=== PATIENT | male | born 1955 | race American Indian/Alaskan Native ===

== ENCOUNTER 2017-05-11 04:56 | Emergency (ER) | payer MEDICARE ==
[2017-05-11 06:17] LABS: Hematocrit 37.7 % (35.5-45.6); Hemoglobin 12.9 gm/dl (11.8-15.2); Mean Corpuscular HGB Conc 34 % (32-34); Mean Corpuscular Hemoglobin 26 pg (28-32); Mean Corpuscular Volume 76 fl (84-94); Platelet Count 240 K/mm3 (140-440); Red Blood Count 4.95 M/mm3 (3.65-5.03); White Blood Count 15.4 K/mm3 (4.5-11.0)
[2017-05-11 06:18] LABS: Anion Gap 35 mmol/L; Blood Urea Nitrogen 12 mg/dL (9-20); Calcium 9.1 mg/dL (8.4-10.2); Carbon Dioxide 26 mmol/L (22-30); Chloride 92.9 mmol/L (98-107); Glucose 115 mg/dL (75-100); Potassium 4.6 mmol/L (3.6-5.0); Sodium 149 mmol/L (137-145)
[2017-05-11 06:22] LABS: Red Cell Distribution Width 22.1 % (13.2-15.2)
[2017-05-11 06:59] LABS: Bilirubin,Urine NEG (Negative); Blood,Urine NEG (Negative); Ketones,Urine NEG (Negative); Leukocyte Esterase,Urine NEG (Negative); Nitrite,Urine NEG (Negative); Protein,Urine <15 mg/dL mg/dL (Negative); Urobilinogen,Urine < 2.0 mg/dL (<2.0); WBC,Urine < 1.0 /HPF (0.0-6.0)
--- NOTE | 2017-05-11 07:12 | Emergency Department Report ---
ED Chest Pain HPI - General Chief Complaint: Chest Pain Stated Complaint: LT SHOULDER PAIN Time Seen by Provider: 05/11/17 07:11 Source: patient Mode of arrival: Ambulatory Limitations: No Limitations - History of Present Illness Initial Comments: Patient is a 61-year-old male past medical history of sickle cell anemia. Who presents with left shoulder pain. Patient's left shoulder started 12 hours ago. It is severe it is an achy type of pain that does not radiate nothing makes the pain better or worse. The pain is not associated with any symptoms. He states that this shoulder pain is typical for his sickle cell pain. Patient has no nausea no vomiting. Severity scale (0 -10): 6 - Related Data Allergies Allergy/AdvReac Type Severity Reaction Status Date / Time No Known Allergies Allergy Verified 05/11/17 05:28 Heart Score - HEART Score History: Slightly suspicious EKG: Normal Age: 45-65 Risk factors: 1-2 risk factors Troponin: < normal limit HEART Score: 2 ED Review of Systems ROS: Stated complaint: LT SHOULDER PAIN Other details as noted in HPI Constitutional: denies: chills, fever Eyes: denies: eye pain, eye discharge, vision change ENT: denies: ear pain, throat pain Respiratory: denies: cough, shortness of breath, wheezing Cardiovascular: denies: chest pain, palpitations Endocrine: no symptoms reported Gastrointestinal: denies: abdominal pain, nausea, diarrhea Genitourinary: denies: urgency, dysuria Musculoskeletal: as per HPI, arthralgia Skin: denies: rash, lesions Neurological: denies: headache, weakness, paresthesias Psychiatric: denies: anxiety, depression Hematological/Lymphatic: denies: easy bleeding, easy bruising ED Past Medical Hx - Past Medical History Previous Medical History?: No - Surgical History Past Surgical History?: No - Social History Smoking Status: Current Some Day Smoker Substance Use Type: Cocaine ED Physical Exam - General Limitations: No Limitations General appearance: alert, in no apparent distress - Head Head exam: Present: atraumatic, normocephalic - Eye Eye exam: Present: normal appearance - ENT ENT exam: Present: mucous membranes moist - Neck Neck exam: Present: normal inspection - Respiratory Respiratory exam: Present: normal lung sounds bilaterally. Absent: respiratory distress - Cardiovascular Cardiovascular Exam: Present: regular rate, normal rhythm. Absent: systolic murmur, diastolic murmur, rubs, gallop - GI/Abdominal GI/Abdominal exam: Present: soft, normal bowel sounds - Rectal Rectal exam: Present: deferred - Extremities Exam Extremities exam: Present: normal inspection - Back Exam Back exam: Present: normal inspection - Neurological Exam Neurological exam: Present: alert, oriented X3 - Psychiatric Psychiatric exam: Present: normal affect, normal mood - Skin Skin exam: Present: warm, dry, intact, normal color. Absent: rash ED Course Vital Signs 05/11/17 05/11/17 05/11/17 05:28 06:14 06:15 Temperature 97.6 F Pulse Rate 80 74 78 Respiratory 20 20 Rate Blood Pressure 106/80 Blood Pressure [Right] O2 Sat by Pulse 100 97 97 Oximetry 05/11/17 05/11/17 05/11/17 06:30 06:46 07:00 Temperature Pulse Rate 79 Respiratory 24 16 13 Rate Blood Pressure 101/65 101/65 108/64 Blood Pressure [Right] O2 Sat by Pulse 100 95 94 Oximetry 05/11/17 05/11/17 07:32 09:34 Temperature 98 F Pulse Rate 75 Respiratory 18 18 Rate Blood Pressure Blood Pressure 108/64 [Right] O2 Sat by Pulse 97 Oximetry - Reevaluation(s) Reevaluation #1: 05/11/17 08:57 Evaluated patient I will give patient IV hydration IV morphine and will evaluate chest x-ray to evaluate for acute chest syndrome. Reevaluation #2: 05/11/17 11:24 Patient is feeling better after IV analgesic medication I will send patient home patient. YOSELYN score - Yoselyn Score Age > 65: (0) No Aspirin use within the Past 7 Days: (0) No 3 or more CAD Risk Factors: (0) No 2 or more Angina events in past 24 hrs: (0) No Known CAD with more than 50% Stenosis: (0) No Elevated Cardiac Markers: (0) No ST Deviation Greater than 0.5mm: (0) No YOSELYN Score: 0 ED Medical Decision Making - Lab Data Result diagrams: 05/11/17 05:39 05/11/17 05:39 Lab Results 05/11/17 05/11/17 05/11/17 Range/Units 05:39 05:39 06:41 WBC 15.4 H (4.5-11.0) K/mm3 RBC 4.95 (3.65-5.03) M/mm3 Hgb 12.9 (11.8-15.2) gm/dl Hct 37.7 (35.5-45.6) % MCV 76 L (84-94) fl MCH 26 L (28-32) pg MCHC 34 (32-34) % RDW 22.1 H (13.2-15.2) % Plt Count 240 (140-440) K/mm3 Lymph # Lab Aid Add Manual Diff Complete Total Counted 100 Seg Neuts % (Manual) 59.0 (40.0-70.0) % Band Neutrophils % 12.0 % Lymphocytes % (Manual) 17.0 (13.4-35.0) % Reactive Lymphs % (Man) 0 % Monocytes % (Manual) 7.0 (0.0-7.3) % Eosinophils % (Manual) 4.0 (0.0-4.3) % Basophils % (Manual) 0 (0.0-1.8) % Metamyelocytes % 1.0 % Myelocytes % 0 % Promyelocytes % 0 % Blast Cells % 0 % Nucleated RBC % 6.0 H (0.0-0.9) % Seg Neutrophils # Man 9.1 H (1.8-7.7) K/mm3 Band Neutrophils # 1.8 K/mm3 Lymphocytes # (Manual) 2.6 (1.2-5.4) K/mm3 Abs React Lymphs (Man) 0.0 K/mm3 Monocytes # (Manual) 1.1 H (0.0-0.8) K/mm3 Eosinophils # (Manual) 0.6 H (0.0-0.4) K/mm3 Basophils # (Manual) 0.0 (0.0-0.1) K/mm3 Metamyelocytes # 0.2 K/mm3 Myelocytes # 0.0 K/mm3 Promyelocytes # 0.0 K/mm3 Blast Cells # 0.0 K/mm3 WBC Morphology Not Reportable Hypersegmented Neuts Not Reportable Hyposegmented Neuts Not Reportable Hypogranular Neuts Not Reportable Smudge Cells Few Toxic Granulation Not Reportable Toxic Vacuolation Not Reportable Dohle Bodies Not Reportable Pelger-Huet Anomaly Not Reportable [place] Rods Not Reportable Platelet Estimate Appears normal Clumped Platelets Not Reportable Plt Clumps, EDTA Not Reportable Large Platelets Not Reportable Giant Platelets Few Platelet Satelliting Not Reportable Plt Morphology Comment Not Reportable RBC Morphology Not Reportable Dimorphic RBCs Not Reportable Polychromasia Not Reportable Hypochromasia Not Reportable Poikilocytosis Not Reportable Anisocytosis 1+ Microcytosis Not Reportable Macrocytosis 1+ Spherocytes Not Reportable Pappenheimer Bodies Not Reportable Sickle Cells Not Reportable Target Cells Few Tear Drop Cells Not Reportable Ovalocytes Not Reportable Helmet Cells Not Reportable [place] Bodies Not Reportable [place] Rings Not Reportable Sieper Cells Not Reportable Bite Cells Not Reportable Crenated Cell Not Reportable Elliptocytes Not Reportable Acanthocytes (Spur) Not Reportable Rouleaux Not Reportable Hemoglobin C Crystals Not Reportable Schistocytes Not Reportable Malaria parasites Not Reportable Jered Bodies Not Reportable Hem Pathologist Commnt No Sodium 149 H (137-145) mmol/L Potassium 4.6 (3.6-5.0) mmol/L Chloride 92.9 L (98-107) mmol/L Carbon Dioxide 26 (22-30) mmol/L Anion Gap 35 mmol/L BUN 12 (9-20) mg/dL Creatinine 1.0 (0.8-1.5) mg/dL Estimated GFR > 60 ml/min BUN/Creatinine Ratio 12.00 % Glucose 115 H (75-100) mg/dL Calcium 9.1 (8.4-10.2) mg/dL Troponin T < 0.010 (0.00-0.029) ng/mL Urine Color Yellow (Yellow) Urine Turbidity Clear (Clear) Urine pH 5.0 (5.0-7.0) Ur Specific [place] 1.012 (1.003-1.030) Urine Protein <15 mg/dl (Negative) mg/dL Urine Glucose (UA) Neg (Negative) mg/dL Urine Ketones Neg (Negative) mg/dL Urine Blood Neg (Negative) Urine Nitrite Neg (Negative) Urine Bilirubin Neg (Negative) Urine Urobilinogen < 2.0 (<2.0) mg/dL Ur Leukocyte Esterase Neg (Negative) Urine WBC (Auto) < 1.0 (0.0-6.0) /HPF Urine RBC (Auto) 3.0 (0.0-6.0) /HPF - EKG Data -: EKG Interpreted by Wa - EKG Data 05/11/17 08:58 EKG shows normal sinus rhythm right bundle branch block no signs of ST segment elevation no previous EKG to compare with. - Radiology Data Radiology results: report reviewed, image reviewed Chest x-ray shows: No acute cardiopulmonary findings - Medical Decision Making Chief medical diagnosis: Sickle cell pain Differential medical diagnosis acute chest syndrome, pericarditis It CBC, CMP, EKG, cxr, troponin and IV pain analgesic medication. Critical care attestation.: If time is entered above; I have spent that time in minutes in the direct care of this critically ill patient, excluding procedure time. ED Disposition Clinical Impression: Sickle cell anemia with pain Left shoulder pain Qualifiers: Chronicity: acute Qualified Code(s): M25.512 - Pain in left shoulder Disposition: DC-01 TO HOME OR SELFCARE Is pt being admited?: No Does the pt Need Aspirin: No Condition: Stable Instructions: Sickle Cell Crisis (ED) Referrals: PRIMARY CARE, [Primary Care Provider] - 3-5 Days
[2017-05-11 07:36] LABS: Basophils % (Manual) 0 % (0.0-1.8); Blastocytes % (Manual) 0 %
[2017-05-11 07:37] LABS: Anisocytosis 1+; Giant Platelets Few; Macrocytosis 1+; Target Cells Few
[2017-05-11 07:38] LABS: Diff Status Complete; Smudge Cells Few
[2017-05-11] MEDS ORDERED: NACL 0.9% 1000 ML 1,000 ML IV ONE (07:56)
[2017-05-11] MEDS ORDERED: MORPHINE IV ONE ×2 (07:57→10:21)
--- NOTE | 2017-05-11 08:09 | XRay Report ---
Chest 2 views: History: Chest pain. Findings: Normal cardiomediastinal silhouette the trachea is midline. No definite consolidation, pneumothorax or pleural effusion. Impression: No definite acute cardiopulmonary findings.
[2017-05-11 13:02] VITALS: BP 107/64
== END 2017-05-11 13:06 | disposition home or self-care (01) ==
LOC: ED 04:56
DX: D57.1 Sickle-cell disease without crisis (principal); M25.512 Pain in left shoulder; F17.200 Nicotine dependence, unspecified, uncomplicated
CPT/HCPCS: 36415; 71020; 80048; 81001; 84484; 85007; 85025; 93005; 93010; 96361; 96374; 96376; 99285; J2270; J7030

== ENCOUNTER 2020-05-20 06:22 | Emergency (ER) | payer SELFPAY | END 2020-05-20 06:45 | disposition left against medical advice (07) | LOC: ED 06:22 | DX: D57.1 Sickle-cell disease without crisis (principal); Z53.21 Procedure and treatment not carried out due to patient leaving prior to being seen by health care provider ==

== ENCOUNTER 2020-05-26 00:31 | Emergency (ER) | payer MEDICARE ==
[2020-05-26 01:02] LABS: Hematocrit 39.3 % (35.5-45.6); Hemoglobin 13.7 gm/dl (11.8-15.2); Mean Corpuscular HGB Conc 35 % (32-34); Mean Corpuscular Volume 82 fl (84-94); Platelet Count 297 K/mm3 (140-440); Red Blood Count 4.82 M/mm3 (3.65-5.03); Red Cell Distribution Width 18.5 % (13.2-15.2)
[2020-05-26 01:26] LABS: Alanine Aminotransferase 11 units/L (7-56); BUN/Creatinine Ratio 14; Blood Urea Nitrogen 13 mg/dL (9-20); Calcium 8.9 mg/dL (8.4-10.2); Hemolysis Index 8
[2020-05-26] MEDS ORDERED: MORPHINE 2 MG/1 ML INJ IV ONE (01:31)
[2020-05-26] MEDS ORDERED: diphenhydrAMINE 50 MG/ML VIAL IV ONE (01:31)
[2020-05-26] MEDS ORDERED: ONDANSETRON 4 MG/2 ML INJ IV ONE (01:31)
[2020-05-26] MEDS ORDERED: D5W/0.2% NACL 1,000 ML IV SCH (02:00)
[2020-05-26 02:07] LABS: Total Cells Counted 100
[2020-05-26 02:08] LABS: Anisocytosis 1+; Giant Platelets Few; Macrocytosis 1+; Schistocytes Rare; Smudge Cells Few; Target Cells Few
--- NOTE | 2020-05-26 02:13 | Emergency Department Report ---
ED Extremity Problem HPI - General Chief complaint: Sickle Cell Crisis Stated complaint: RT SHOULDER/HEAD PAIN Time Seen by Provider: 05/26/20 01:24 Source: patient Mode of arrival: Ambulatory Limitations: No Limitations - History of Present Illness Initial comments: 64-year-old male with a past medical history of sickle cell SC presents to the hospital complaining of right shoulder pain for the last 3 days secondary to sickle cell crisis. Pain is moderate to severe in intensity, constant, not alleviated with [id number] ibuprofen and Tylenol. Patient denies trauma, fever, or infectious symptoms. 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 Severity scale (0 -10): 10 - Related Data Previous Rx's Medication Instructions Recorded Last Taken Type Azithromycin [Zithromax Z-ABHISHEK] 250 mg PO QDAY #6 tablet 12/19/18 Unknown Rx Ibuprofen [Motrin 600 MG tab] 600 mg PO Q8H PRN #30 tablet 12/19/18 Unknown Rx Oseltamivir Phosphate [Tamiflu] 75 mg PO BID #10 capsule 12/19/18 Unknown Rx oxyCODONE /ACETAMINOPHEN [Percocet 1 tab PO Q6HR PRN #20 tablet 05/26/20 Unknown Rx 5/325] Allergies Allergy/AdvReac Type Severity Reaction Status Date / Time No Known Allergies Allergy Verified 05/11/17 05:28 ED Review of Systems ROS: Stated complaint: RT SHOULDER/HEAD PAIN Other details as noted in HPI Comment: All other systems reviewed and negative ED Past Medical Hx - Past Medical History Hx Sickle Cell Disease: Yes Additional medical history: Left retinal detachment - Surgical History Hx Appendectomy: No - Social History Smoking Status: Current Every Day Smoker Substance Use Type: None - Medications Home Medications: Home Medications Medication Instructions Recorded Confirmed Last Taken Type Azithromycin [Zithromax Z-ABHISHEK] 250 mg PO QDAY #6 tablet 12/19/18 Unknown Rx Ibuprofen [Motrin 600 MG tab] 600 mg PO Q8H PRN #30 tablet 12/19/18 Unknown Rx Oseltamivir Phosphate [Tamiflu] 75 mg PO BID #10 capsule 12/19/18 Unknown Rx oxyCODONE /ACETAMINOPHEN [Percocet 1 tab PO Q6HR PRN #20 tablet 05/26/20 Unknow n Rx 5/325] ED Physical Exam - General Limitations: No Limitations - Other Other exam information: General: No acute distress Head: Atraumatic Eyes: Left eye with conjunctival injection ENT: Moist mucous membranes Neck: Normal appearance, no midline tenderness Chest: Clear to auscultation bilaterally CV: Regular rate and rhythm Abdomen: Soft, normal bowel sounds, nontender, nondistended, no rebound or guarding Back: Normal inspection Extremity: Normal inspection, full range of motion. No tenderness to palpation the right shoulder, no pain with movement, no warmth, no erythema Neuro: Alert O x 3, no facial asymmetry, speech clear, no gross motor sensory deficit Psych: Appropriate behavior Skin: No rash ED Course Vital Signs 05/26/20 05/26/20 05/26/20 00:38 00:52 01:25 Temperature 97.9 F 98.5 F 97.6 F Pulse Rate 85 76 74 Respiratory 18 18 16 Rate Blood Pressure 130/62 170/96 Blood Pressure 101/54 [Left] O2 Sat by Pulse 94 99 94 Oximetry 05/26/20 05/26/20 05/26/20 01:45 01:49 02:15 Temperature Pulse Rate 75 69 Respiratory 14 18 15 Rate Blood Pressure 110/64 118/63 Blood Pressure [Left] O2 Sat by Pulse 93 95 Oximetry 05/26/20 05/26/20 05/26/20 02:19 02:30 02:45 Temperature Pulse Rate 59 L 60 Respiratory 16 12 13 Rate Blood Pressure 110/65 111/66 Blood Pressure [Left] O2 Sat by Pulse 96 97 Oximetry 05/26/20 05/26/20 05/26/20 02:58 03:28 03:30 Temperature Pulse Rate 61 Respiratory 14 16 12 Rate Blood Pressure 103/55 Blood Pressure [Left] O2 Sat by Pulse 93 Oximetry 05/26/20 05/26/20 05/26/20 04:15 04:30 04:45 Temperature Pulse Rate 58 L 66 59 L Respiratory 10 L 10 L 10 L Rate Blood Pressure 107/58 104/62 110/56 Blood Pressure [Left] O2 Sat by Pulse 95 95 96 Oximetry ED Medical Decision Making - Lab Data Result diagrams: 05/26/20 00:40 05/26/20 00:40 Lab Results 05/26/20 05/26/20 Range/Units 00:40 00:40 WBC 13.5 H (4.5-11.0) K/mm3 RBC 4.82 (3.65-5.03) M/mm3 Hgb 13.7 (11.8-15.2) gm/dl Hct 39.3 (35.5-45.6) % MCV 82 L (84-94) fl MCH 29 (28-32) pg MCHC 35 H (32-34) % RDW 18.5 H (13.2-15.2) % Plt Count 297 (140-440) K/mm3 Add Manual Diff Complete Total Counted 100 Seg Neuts % (Manual) 57.0 (40.0-70.0) % Band Neutrophils % 0 % Lymphocytes % (Manual) 32.0 (13.4-35.0) % Reactive Lymphs % (Man) 0 % Monocytes % (Manual) 7.0 (0.0-7.3) % Eosinophils % (Manual) 3.0 (0.0-4.3) % Basophils % (Manual) 1.0 (0.0-1.8) % Metamyelocytes % 0 % Myelocytes % 0 % Promyelocytes % 0 % Blast Cells % 0 % Nucleated RBC % Not Reportable Seg Neutrophils # Man 7.7 (1.8-7.7) K/mm3 Band Neutrophils # 0.0 K/mm3 Lymphocytes # (Manual) 4.3 (1.2-5.4) K/mm3 Abs React Lymphs (Man) 0.0 K/mm3 Monocytes # (Manual) 0.9 H (0.0-0.8) K/mm3 Eosinophils # (Manual) 0.4 (0.0-0.4) K/mm3 Basophils # (Manual) 0.1 (0.0-0.1) K/mm3 Metamyelocytes # 0.0 K/mm3 Myelocytes # 0.0 K/mm3 Promyelocytes # 0.0 K/mm3 Blast Cells # 0.0 K/mm3 WBC Morphology Not Reportable Hypersegmented Neuts Not Reportable Hyposegmented Neuts Not Reportable Hypogranular Neuts Not Reportable Smudge Cells Few Toxic Granulation Not Reportable Toxic Vacuolation Not Reportable Dohle Bodies Not Reportable Pelger-Huet Anomaly Not Reportable [place] Rods Not Reportable Platelet Estimate Not Reportable Clumped Platelets Not Reportable Plt Clumps, EDTA Not Reportable Large Platelets Not Reportable Giant Platelets Few Platelet Satelliting Not Reportable Plt Morphology Comment Not Reportable RBC Morphology Not Reportable Dimorphic RBCs Not Reportable Polychromasia Not Reportable Hypochromasia Not Reportable Poikilocytosis Not Reportable Anisocytosis 1+ Microcytosis Rare Macrocytosis 1+ Spherocytes Not Reportable Pappenheimer Bodies Not Reportable Sickle Cells Not Reportable Target Cells Few Tear Drop Cells Not Reportable Ovalocytes Not Reportable Helmet Cells Not Reportable [place]qu[place] Bodies Not Reportable [place] Rings Not Reportable Memo Cells Not Reportable Bite Cells Not Reportable Crenated Cell Not Reportable Elliptocytes Not Reportable Acanthocytes (Spur) Not Reportable Rouleaux Not Reportable Hemoglobin C Crystals Not Reportable Schistocytes Rare Malaria parasites Not Reportable Percent Retic 3.18 H (0.78-2.58) % Jered Bodies Not Reportable Hem Pathologist Commnt No Sodium 144 (137-145) mmol/L Potassium 4.0 (3.6-5.0) mmol/L Chloride 104.9 (98-107) mmol/L Carbon Dioxide 24 (22-30) mmol/L Anion Gap 19 mmol/L BUN 13 (9-20) mg/dL Creatinine 0.9 (0.8-1.3) mg/dL Estimated GFR > 60 ml/min BUN/Creatinine Ratio 14 % Glucose 167 H (75-100) mg/dL Calcium 8.9 (8.4-10.2) mg/dL Total Bilirubin 0.70 (0.1-1.2) mg/dL AST 18 (5-40) units/L ALT 11 (7-56) units/L Alkaline Phosphatase 70 (35-129) units/L Total Protein 7.4 (6.3-8.2) g/dL Albumin 4.0 (3.9-5) g/dL Albumin/Globulin Ratio 1.2 % - Medical Decision Making Pain improved with ED treatment. Patient has pain secondary to sickle cell crisis with pain to his right shoulder. Patient states he is unable to take NSAIDs on a regular basis or on high doses because of his retinal detachment. Patient does not have anemia. Reticulocyte count mildly elevated. Right shoulder pain is not reproducible and no clinical signs of infection. he will be discharged on medications for pain Critical Care Time: No Critical care attestation.: If time is entered above; I have spent that time in minutes in the direct care of this critically ill patient, excluding procedure time. ED Disposition Clinical Impression: Right shoulder pain, Sickle cell pain crisis Disposition: DC- TO HOME OR SELFCARE Is pt being admited?: No Does the pt Need Aspirin: No Condition: Stable Instructions: Sickle Cell Crisis (ED) Additional Instructions: Take the medication as prescribed. Follow-up with your doctor or doctor/clinic provided. Return if symptoms worsen as indicated by your discharge instructions. Prescriptions: oxyCODONE /ACETAMINOPHEN [Percocet 5/325] 1 tab PO Q6HR PRN #20 tablet PRN Reason: Pain Referrals: JUSTYNA HOFFMANN MD [Staff Physician] - 3-5 Days (group insurance special agent) ROMA GALVEZ DO [Staff Physician] - 3-5 Days (Transcribing Machine Mechanic) VINH SHAH MD [Staff Physician] - 3-5 Days (Primary care doctor) Time of Disposition: 05:16
[2020-05-26] MEDS ORDERED: HYDROmorphone 1 MG/1 ML INJ IV ONE (02:52)
[2020-05-26 06:13] VITALS: BP 102/69
== END 2020-05-26 05:50 | disposition home or self-care (01) ==
LOC: ED 00:31
DX: D57.00 Hb-SS disease with crisis, unspecified (principal); M25.511 Pain in right shoulder; F17.200 Nicotine dependence, unspecified, uncomplicated; Z79.899 Other long term (current) drug therapy
CPT/HCPCS: 36415; 80053; 85007; 85025; 85045; 96361; 96374; 96375; 99283; J1170; J1200; J2270; J2405

== ENCOUNTER 2020-06-01 10:20 | Emergency (ER) | payer MEDICARE ==
[2020-06-01] MEDS ORDERED: METOCLOPRAMIDE 10 MG/2 ML INJ IV ONE (10:33)
[2020-06-01] MEDS ORDERED: methylPREDNISolone Sod Succinate 125 MG/2 ML INJ IV ONE (10:33)
[2020-06-01] MEDS ORDERED: SODIUM CHLORIDE 0.9% 500 ML 500 ML IV ONE (10:34)
--- NOTE | 2020-06-01 10:37 | Emergency Department Report ---
HPI - General Chief Complaint: Headache Time Seen by Provider: 06/01/20 10:32 - HPI HPI: This is a 64-year-old -Irish male presents to the emergency department with a complaint of a right-sided headache, some dizziness and some blurry vision. He denies any weakness, numbness or paresthesias, slurred speech, or any other neurological deficits. Overall the headache has been going on intermittently over the past 2 weeks. It worsened this morning so he came in to be seen. Currently the patient is at [facility] as a voluntary admission for some depression and "detox" from some opiates. He has a history of sickle cell anemia. 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 Patient has been taking some Tylenol and/or ibuprofen when the headaches occur with some transient relief, and he received 800 mg of ibuprofen at 9:45 AM this morning. ED Past Medical Hx - Past Medical History Hx Sickle Cell Disease: Yes Additional medical history: Left retinal detachment - Surgical History Hx Appendectomy: No - Social History Smoking Status: Current Every Day Smoker Substance Use Type: None - Medications Home Medications: Home Medications Medication Instructions Recorded Confirmed Last Taken Type Azithromycin [Zithromax Z-ABHISHEK] 250 mg PO QDAY #6 tablet 12/19/18 Unknown Rx Ibuprofen [Motrin 600 MG tab] 600 mg PO Q8H PRN #30 tablet 12/19/18 Unknown Rx Oseltamivir Phosphate [Tamiflu] 75 mg PO BID #10 capsule 12/19/18 Unknown Rx oxyCODONE /ACETAMINOPHEN [Percocet 1 tab PO Q6HR PRN #20 tablet 05/26/20 Unknown Rx 5/325] ED Review of Systems ROS: Stated complaint: GAINES/DIZZINESS Other details as noted in HPI Comment: All other systems reviewed and negative Constitutional: denies: chills, fever Eyes: vision change. denies: eye pain ENT: denies: ear pain, throat pain Respiratory: denies: cough, shortness of breath Cardiovascular: denies: chest pain, palpitations Gastrointestinal: denies: abdominal pain, vomiting Genitourinary: denies: dysuria, discharge Musculoskeletal: denies: back pain, arthralgia Skin: denies: rash, lesions Neurological: headache. denies: weakness Physical Exam - Physical Exam Physical Exam: GENERAL: The patient is well-developed well-nourished. HENT: Normocephalic. Atraumatic. Patient has moist mucous membranes. EYES: Extraocular motions are intact. No nystagmus. NECK: Supple. Trachea is midline. CHEST/LUNGS: Clear to auscultation. There is no respiratory distress noted. HEART/CARDIOVASCULAR: Regular. There is no tachycardia. There is no murmur. ABDOMEN: Abdomen is soft, nontender. Patient has normal bowel sounds. SKIN: Skin is warm and dry. NEURO: The patient is awake, alert, and oriented. The patient is cooperative. The patient has no focal neurologic deficits. Normal speech. No facial asymmetry. No pronator drift. MUSCULOSKELETAL: There is no tenderness or deformity. There is no limitation range of motion. ED Medical Decision Making - Lab Data Result diagrams: 06/01/20 10:51 06/01/20 10:51 - Radiology Data Radiology results: report reviewed NONENHANCED CT SCAN OF THE HEAD: INDICATION / CLINICAL INFORMATION: 64 years Male; headache. TECHNIQUE: Routine CT head without contrast. All CT scans at this location are performed using CT dose reduction for ALARA by means of automated exposure control. COMPARISON: None. FINDINGS: BRAIN / INTRACRANIAL CONTENTS: No acute hemorrhage, mass effect, midline shift, hydrocephalus, or acute, large territorial infarct. No chronic infarct or focal atrophy. Normal brain volume and ventricular/sulcal size for age. No significant white matter abnormality. CRANIOCERVICAL JUNCTION: No significant abnormality. ORBITS: No significant abnormality of visualized orbits. SINUSES / MASTOIDS: No significant abnormality of the visualized paranasal sinuses or mastoid air cells. ADDITIONAL FINDINGS: Lower CT attenuation is seen in the clivus. This appears to be an incidental lipoma. IMPRESSION: No acute focal parenchymal lesion in the brain - Medical Decision Making This patient presents to the emergency department with complaint of an acute on chronic headache. The patient has been getting headaches over the past few weeks but worsened this morning. Patient had complained of some blurry vision. However he later admits that he has almost no vision in his left eye chronically secondary to previous retinal detachment from his sickle cell anemia. He also has some decreased right eye vision that has also been going on for the past few weeks. CT scan of the head without contrast does not show any bleed, shift, mass, ischemia, or any other acute process. Patient's labs are mostly unremarkable except for a very mild leukocytosis and a reticulocyte count of 2.5. An IV was placed and the patient was given a dose of Solu-Medrol, Reglan, and some IV fluid resuscitation. Upon reevaluation the patient says that his headache is completely resolved, 0 out of 10. The patient also says that his blurry vision has decreased and he is back at what is apparently his baseline visual acuity. The patient says that he follows up with [place] for both the sickle cell clinic and for ophthalmology. I have given him an outpatient referral for Dr. Agrawal, neurology, to follow-up regarding his recurrent headaches. His vital signs been reassuring throughout his ED course including being afebrile. He will return to the ER with any worsening of his symptoms or with any acute distress. Critical Care Time: No Critical care attestation.: If time is entered above; I have spent that time in minutes in the direct care of this critically ill patient, excluding procedure time. 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 It is also recommended that you establish care with a primary care provider and I will give you some referrals for a local provider and a local clinic. I am also giving you a referral for a local neurologist, Dr. Agrawal, to follow-up regarding your headaches. Return to the emergency department with any worsening of your symptoms or with any acute distress. Referrals: [facility] [Other] - 3-5 Days VINH SHAH MD [Staff Physician] - 3-5 Days DANY AGRAWAL MD [Referring] - 3-5 Days [facility] [Provider Group] - 3-5 Days Time of Disposition: 13:39
[2020-06-01 11:10] LABS: Basophils # (Auto) 0.2 K/mm3 (0.0-0.1); Basophils % (Auto) 1.5 % (0.0-1.8); Eosinophils # (Auto) 0.4 K/mm3 (0.0-0.4); Eosinophils % (Auto) 2.6 % (0.0-4.3); Hematocrit 35.6 % (35.5-45.6); Hemoglobin 12.2 gm/dl (11.8-15.2); Lymphocytes % (Auto) 21.6 % (13.4-35.0); Mean Corpuscular HGB Conc 34 % (32-34); Mean Corpuscular Volume 82 fl (84-94); Monocytes # (Auto) 0.7 K/mm3 (0.0-0.8); Monocytes % (Auto) 5.3 % (0.0-7.3); Platelet Count 263 K/mm3 (140-440); Red Blood Count 4.36 M/mm3 (3.65-5.03); Red Cell Distribution Width 18.7 % (13.2-15.2)
[2020-06-01 11:23] LABS: BUN/Creatinine Ratio 19; Blood Urea Nitrogen 19 mg/dL (9-20); Calcium 8.9 mg/dL (8.4-10.2); Hemolysis Index 11
[2020-06-01 11:45] LABS: Erythrocyte Sedimentation Rate 9 mm/Hr (0-20)
--- NOTE | 2020-06-01 11:58 | Cat Scan Report ---
NONENHANCED CT SCAN OF THE HEAD: INDICATION / CLINICAL INFORMATION: 64 years Male; headache. TECHNIQUE: Routine CT head without contrast. All CT scans at this location are performed using CT dos e reduction for ALARA by means of automated exposure control. COMPARISON: None. FINDINGS: BRAIN / INTRACRANIAL CONTENTS: No acute hemorrhage, mass effect, midline shift, hydrocephalus, or ac havasupai, large territorial infarct. No chronic infarct or focal atrophy. Normal brain volume and ventricu lar/sulcal size for age. No significant white matter abnormality. CRANIOCERVICAL JUNCTION: No significant abnormality. ORBITS: No significant abnormality of visualized orbits. SINUSES / MASTOIDS: No significant abnormality of the visualized paranasal sinuses or mastoid air annie ls. ADDITIONAL FINDINGS: Lower CT attenuation is seen in the clivus. This appears to be an incidental lip boaz. IMPRESSION: No acute focal parenchymal lesion in the brain Signer Name: Hugo Aaron MD Signed: 06/01/2020 11:53 AM Workstation Name: [id number]
[2020-06-01 14:11] VITALS: BP 110/52
== END 2020-06-01 14:32 | disposition home or self-care (01) ==
LOC: ED 10:20
DX: R51 Headache (principal); D57.1 Sickle-cell disease without crisis; F17.200 Nicotine dependence, unspecified, uncomplicated; Z79.899 Other long term (current) drug therapy
CPT/HCPCS: 36415; 70450; 80048; 84443; 85025; 85045; 85652; 96374; 96375; 99285; J2765; J2930; J7040

== ENCOUNTER 2021-03-16 17:28 | Emergency (ER) | payer MEDICARE ==
[2021-03-16 18:42] VITALS: BP 161/79
[2021-03-16 19:32] LABS: Alanine Aminotransferase 13 units/L (7-56); Albumin 4.4 g/dL (3.9-5); BUN/Creatinine Ratio 11; Blood Urea Nitrogen 10 mg/dL (9-20); Calcium 9.2 mg/dL (8.4-10.2); Hemolysis Index 20
[2021-03-16 19:33] LABS: Hemoglobin 13.5 gm/dl (11.8-15.2); Mean Corpuscular HGB Conc 35 % (32-34); Mean Corpuscular Volume 81 fl (84-94); Platelet Count 397 K/mm3 (140-440); Red Blood Count 4.81 M/mm3 (3.65-5.03)
--- NOTE | 2021-03-16 19:33 | XRay Report ---
CHEST 2 VIEWS INDICATION / CLINICAL INFORMATION: chest pain. COMPARISON: 12/19/2018 FINDINGS: SUPPORT DEVICES: None. HEART / MEDIASTINUM: No significant abnormality. LUNGS / PLEURA: No significant pulmonary or pleural abnormality. No pneumothorax. ADDITIONAL FINDINGS: No significant additional findings. IMPRESSION: No significant abnormality or interval change from 12/19/2018 Signer Name: Skinny Wan MD FACR Signed: 03/16/2021 7:29 PM Workstation Name: [id number]
[2021-03-16 19:36] LABS: Red Cell Distribution Width 20.2 % (13.2-15.2)
[2021-03-16 20:56] LABS: Anisocytosis RARE; Platelet Clumps Rare; Total Cells Counted 100
--- NOTE | 2021-03-18 19:29 | Electrocardiograph Report ---
[facility] Test Date: 2021-03-16 Test Time: 18:31:08 Pat Name: CINTIA ALEX Department: Room: Gender: M Hospitality Ambassador: GKING3 : 1955 Requested By: HUGO BOND Order Number: [id number] Reading MD: Brent Miranda Measurements Intervals [place] Rate: 73 P: 76 FL: 162 QRS: 89 QRSD: 141 T: 44 QT: 407 QTc: 451 Interpretive Statements Sinus rhythm Right atrial enlargement Right bundle branch block No previous ECG available for comparison Electronically Signed On 03-18-2021 19:28:55 EDT by Brnet Miranda
== END 2021-03-16 19:52 | disposition left against medical advice (07) ==
LOC: ED 17:28
DX: R07.9 Chest pain, unspecified (principal); Z53.21 Procedure and treatment not carried out due to patient leaving prior to being seen by health care provider
CPT/HCPCS: 36415; 71046; 80053; 80320; 84484; 85007; 85025; 85045; 93005; G0480

== ENCOUNTER 2021-10-07 21:38 | Emergency (ER) | payer MEDICARE ==
[2021-10-07 22:18] LABS: Hematocrit 34.4 % (35.5-45.6); Hemoglobin 11.6 gm/dl (11.8-15.2); Mean Corpuscular HGB Conc 34 % (32-34); Mean Corpuscular Volume 81 fl (84-94); Platelet Count 329 K/mm3 (140-440); Red Blood Count 4.26 M/mm3 (3.65-5.03); Red Cell Distribution Width 19.7 % (13.2-15.2)
--- NOTE | 2021-10-07 22:29 | Emergency Department Report ---
HPI - General Chief Complaint: Psych Time Seen by Provider: 10/07/21 21:53 - HPI HPI: Room 12 The patient is a 66-year-old male presenting with a chief complaint of opiate abuse. Patient states he has a history of abusing heroin and cocaine nasally (denies IVDA). Patient states he came to [facility] so that he could detox from the above substances. The patient states he overdosed on heroin yesterday and was taken to the hospital but states he did not go to a detox facility afterwards. Patient denies suicidal homicidal ideation. Patient denies visual hallucinations but he states over the past 3 to 4 days he has occasionally had auditory hallucinations hearing someone calling his name. The patient states he did not recognize the voice. ED Past Medical Hx - Past Medical History Previous Medical History?: Yes Hx Sickle Cell Disease: Yes Additional medical history: Left retinal detachment - Surgical History Past Surgical History?: No Additional Surgical History: Left eye surgery secondary to hemorrhage and strabismus. Left foot surgery and debridement with skin graft - Family History Family history: no significant - Social History Smoking Status: Current Every Day Smoker (1 pack/day) Substance Use Type: Cocaine, Heroin - Medications Home Medications: Home Medications Medication Instructions Recorded Confirmed Last Taken Type Acetaminophen [Tylenol] 500 mg PO Q6HR PRN #24 tablet 06/10/20 10/08/21 Unknown Rx ED Review of Systems ROS: Stated complaint: WANTS REHAB Other details as noted in HPI Constitutional: no symptoms reported Eyes: denies: eye pain ENT: denies: throat pain Respiratory: no symptoms reported Cardiovascular: denies: chest pain Endocrine: no symptoms reported Gastrointestinal: denies: abdominal pain Genitourinary: denies: dysuria Musculoskeletal: denies: back pain Neurological: denies: headache Psychiatric: auditory hallucinations. denies: visual hallucinations, homicidal thoughts, suicidal thoughts Physical Exam - Physical Exam Vital Signs: Vital Signs 10/07/21 10/07/21 21:43 21:44 Temperature 98.8 F Pulse Rate 83 86 Respiratory 17 Rate Blood Pressure 132/60 O2 Sat by Pulse 95 93 Oximetry Physical Exam: GENERAL: The patient is well-developed well-nourished []. [] HEENT: Normocephalic. Atraumatic. Extraocular motions are intact. Patient has moist mucous membranes. NECK: Supple. Trachea midline CHEST/LUNGS: Clear to auscultation. There is no respiratory distress noted. HEART/CARDIOVASCULAR: Regular. There is no tachycardia. There is no gallop rub or murmur. ABDOMEN: Abdomen is soft, nontender. Patient has normal bowel sounds. There is no abdominal distention. SKIN: There is no rash. There is no edema. There is no diaphoresis. NEURO: The patient is awake, alert, and oriented. The patient is cooperative. The patient has no focal neurologic deficits. The patient has normal speech. GCS 15 MUSCULOSKELETAL: There is no evidence of acute injury. ED Course Vital Signs 10/07/21 10/07/21 21:43 21:44 Temperature 98.8 F Pulse Rate 83 86 Respiratory 17 Rate Blood Pressure 132/60 O2 Sat by Pulse 95 93 Oximetry ED Medical Decision Making - Lab Data Result diagrams: 10/07/21 21:58 10/07/21 21:58 - Differential Diagnosis Polysubstance abuse Critical care attestation.: If time is entered above; I have spent that time in minutes in the direct care of this critically ill patient, excluding procedure time. ED Disposition Clinical Impression: Polysubstance abuse Disposition: HOME / SELF CARE / HOMELESS Is pt being admited?: No Does the pt Need Aspirin: No Condition: Stable Instructions: Substance Use Disorder and Mental Illness, Finding Treatment for Addiction Additional Instructions: Please follow-up using the following outpatient resources. Return to the emergency department for any emergency health concerns. OUTPATIENT MENTAL HEALTH RESOURCES [facility], [facility] Jaime Osuna MD: [address], [address] [place] [address] [place] [address] [facility]: [employer] [address] [place] [address] [place] [address] [phone] [facility]: [facility]: [address] [facility] [place] [address] [facility] [address] [facility]: Lee Pacheco MD: [id number] [facility] [address] [facility] [id number] [facility]: [address] [place], [place] [address] [address] [phone] [place] CRISIS AND ACCESS LINE: Referrals: [facility] [Provider Group] - 3-5 Days
[2021-10-07 22:31] LABS: Alanine Aminotransferase 13 units/L (7-56); Albumin 4.1 g/dL (3.9-5); Blood Urea Nitrogen 11 mg/dL (9-20); Calcium 9.3 mg/dL (8.4-10.2); Hemolysis Index 6
[2021-10-07 22:36] LABS: BUN/Creatinine Ratio 16
[2021-10-08 02:07] LABS: Basophils % (Manual) 0 % (0.0-1.8); Eosinophils % (Manual) 0 % (0.0-4.3); Total Cells Counted 100
[2021-10-08 02:12] LABS: Sickle Cells Few; Target Cells 1+
[2021-10-08 02:13] LABS: Anisocytosis Few; Platelet Estimate Consistent w Auto
[2021-10-08 08:46] LABS: Amphetamine Screen,Urine Negative; Benzodiazepines Screen,Urine Negative; Bilirubin,Urine NEG (Negative); Blood,Urine NEG (Negative); Cannabinoid Screen,Urine Negative; Color,Urine Yellow (Yellow); Methadone Screen,Urine Negative; Mucus,Urine FEW /HPF; Protein,Urine <15 mg/dL mg/dL (Negative)
[2021-10-08 09:27] LABS: Cocaine Screen,Urine Positive; Opiate Screen,Urine Negative
[2021-10-08] MEDS ORDERED: ACETAMINOPHEN 325 MG TAB PO ONE (11:45)
[2021-10-08] MEDS ORDERED: hydrOXYzine PAMOATE 25 MG CAP PO ONE (11:46)
--- NOTE | 2021-10-08 12:20 | Consultation ---
History of Present Illness - Reason for Consult Consult date: 10/08/21 Reason for consult: mental health evaluation - History of Present Psychiatric Illness ED Note: The patient is a 66-year-old male presenting with a chief complaint of opiate abuse. Patient states he has a history of abusing heroin and cocaine nasally (denies IVDA). Patient states he came to [facility] so that he could detox from the above substances. The patient states he overdosed on heroin yesterday and was taken to the hospital but states he did not go to a detox facility afterwards. Patient denies suicidal homicidal ideation. Patient denies visual hallucinations but he states over the past 3 to 4 days he has occasionally had auditory hallucinations hearing someone calling his name. The patient states he did not recognize the voice. Odin Hobbs is a 66 year old male with history of depression and polysubstance abuse. In my interview with the patient, he is calm, alert and oriented x2. The patient reports that he came to the ED for medical clearance. The patient states he wants to go to [facility] for rehab. He denies any current suicidal/homicidal ideation and denies hallucinations. PAST PSYCHIATRIC HISTORY: Diagnoses: Depression Suicide attempts or Self-harm behavior: Yes Prior psychiatric hospitalizations: denies Substance Abuse history: Cocaine, Heroine Previous psychiatric medications tried:Seroquel, Cymbalta Outpatient treatment:Denies PAST MEDICAL HISTORY: Family Psychiatric History: None reported or documented SOCIAL HISTORY Marital Status: Single Living Arrangements: Homeless Employment Status: Disability Access to guns/weapons: Denies Education: Bachelors History of Abuse: n/a Legal History:Unknown REVIEW OF SYSTEMS Constitutional: Negative for weight loss ENT: Negative for stridor Respiratory: Negative for cough or hemoptysis All other systems reviewed and are negative MENTAL STATUS EXAMINATION General Appearance and Behavior: Age appropriate, good hygiene, wearing appropriate clothes, uncooperative polite with questioning. Cooperation: cooperative Psychomotor Behavior: Psychomotor agitation Mood:"OK" Affect and affective range: congruent Thought Process:Goal oriented Thought Content: reality oriented Speech:Normal Intellectual Functioning: Average Suicidal Ideation:Denies Homicidal Ideation: Denied hallucination: Denied Impulse Control:Questionable Insight and Judgment:limited insight and good judgment Memory: Intact Attention:Distractible Orientation: Alert and oriented Diagnoses: (1) Polysubstance use disorder Treatment Plan: Continue - Home Medications. Patient should be compliant with medications and not to use drugs and not to drink alcohol. PSYCHOTHERAPY: Supportive psychotherapy provided MEDICAL: Per primary team DELIRIUM PRECAUTIONS: Please re-orient patient frequently, keep lights on during the day, and minimize benzodiazepines and opiates as these medications could worsen patient's confusion. WELFARE WORKER: Per medical team DISPOSITION: Do not recommend acute inpatient psychiatric hospitalization at this time FOLLOW-UP: Will sign off. Thank you for the consult. Please contact with any questions and/or concerns. Medications and Allergies Allergies Allergy/AdvReac Type Severity Reaction Status Date / Time NSAIDS (Non-Steroidal AdvReac Unknown Verified 10/08/21 11:52 Anti-Inflamma Home Medications Medication Instructions Recorded Confirmed Last Taken Type Acetaminophen [Tylenol] 500 mg PO Q6HR PRN #24 tablet 06/10/20 10/08/21 Unknown Rx Mental Status Exam - Vital signs Last Vital Signs Temp 98.4 F 10/08/21 09:40 Pulse 62 10/08/21 09:40 Resp 18 10/08/21 09:40 BP 99/50 10/08/21 09:40 Pulse Ox 94 10/08/21 09:40 Results Result Diagrams: 10/07/21 21:58 10/07/21 21:58 Abnormal lab results 10/07/21 10/07/21 10/07/21 Range/Units 21:58 21:58 21:58 WBC 14.0 H (4.5-11.0) K/mm3 Hgb 11.6 L (11.8-15.2) gm/dl Hct 34.4 L (35.5-45.6) % MCV 81 L (84-94) fl MCH 27 L (28-32) pg RDW 19.7 H (13.2-15.2) % Seg Neutrophils # Man 9.5 H (1.8-7.7) K/mm3 Creatinine 0.7 L (0.8-1.3) mg/dL Glucose 122 H (75-100) mg/dL Total Bilirubin 1.70 H (0.1-1.2) mg/dL Salicylates < 0.3 L (2.8-20.0) mg/dL Acetaminophen (10.0-30.0) ug/mL 10/07/21 Range/Units 21:58 WBC (4.5-11.0) K/mm3 Hgb (11.8-15.2) gm/dl Hct (35.5-45.6) % MCV (84-94) fl MCH (28-32) pg RDW (13.2-15.2) % Seg Neutrophils # Man (1.8-7.7) K/mm3 Creatinine (0.8-1.3) mg/dL Glucose (75-100) mg/dL Total Bilirubin (0.1-1.2) mg/dL Salicylates (2.8-20.0) mg/dL Acetaminophen 5.0 L (10.0-30.0) ug/mL All other labs normal.
--- NOTE | 2021-10-08 15:52 | Event Note ---
Date: 10/08/21 66-year-old male with polysubstance abuse presented requesting mental health evaluation. He was seen by my colleague and was medically clear for psychiatric evaluation. Vital signs reviewed and are stable. There were no acute events overnight. He was seen by the mental health/psychiatry team today who recommended discharge with outpatient resources.
[2021-10-08 16:06] VITALS: BP 139/62
== END 2021-10-08 16:04 | disposition home or self-care (01) ==
LOC: ED 21:38
DX: F19.10 Other psychoactive substance abuse, uncomplicated (principal); F17.210 Nicotine dependence, cigarettes, uncomplicated; Z20.822 Contact with and (suspected) exposure to COVID-19; Z88.8 Allergy status to other drugs, medicaments and biological substances; Z79.899 Other long term (current) drug therapy
CPT/HCPCS: 36415; 80053; 80307; 81001; 85007; 85025; 99283; Q0177; U0003; 80320; J3490; G0480

== ENCOUNTER 2022-02-12 22:47 | Emergency (ER) | payer MEDICARE ==
[2022-02-12 23:58] VITALS: BP 134/67
== END 2022-02-13 04:00 | disposition left against medical advice (07) ==
LOC: ED 22:47
DX: M54.50 Low back pain, unspecified (principal); Z53.21 Procedure and treatment not carried out due to patient leaving prior to being seen by health care provider